=== PATIENT | male | born 1960 | race Caucasian/White ===

== ENCOUNTER 2016-06-06 11:50 | Outpatient (CLI) | payer BC ==
[2016-06-06 12:39] LABS: Hemoglobin A1c 8.2 % (4.0-6.0)
[2016-06-06 12:44] LABS: ALT (SGPT) 42 U/L (0-55); AST (SGOT) 26 U/L (5-34); Alkaline Phosphatase 89 U/L (40-150); Bilirubin, Direct 0.3 mg/dL (0.1-0.3); Bilirubin, Total 1.1 mg/dL (0.2-1.2); LDL Cholesterol, Calculated 154 mg/dL; Protein, Total 7.6 g/dL (6.0-8.3)
== END 2016-06-06 11:51 | disposition home or self-care (01) ==
LOC: NAVSJIPCSP 11:50
PROVIDERS: ATTEND Internal Medicine
DX: E78.2 Mixed hyperlipidemia (principal); E11.29 Type 2 diabetes mellitus with other diabetic kidney complication; R74.0 Nonspecific elevation of levels of transaminase and lactic acid dehydrogenase [LDH]
CPT/HCPCS: 36415; 80061; 80076; 83036

== ENCOUNTER 2016-09-22 10:16 | Outpatient (CLI) | payer BC ==
[2016-09-22 12:33] LABS: #Basophils 0.1 thou/uL (0.0-0.2); #Eosinphils 0.5 thou/uL (0.0-0.7); #Monocytes 0.7 thou/uL (0.11-0.59); #Neutrophils 8.5 thou/uL (1.40-6.50); %Basophils 1.1 % (0.0-1.0); %Eosinophils 3.9 % (0.0-10.0); %Lymphocytes 23.4 % (21.0-51.0); %Monocytes 5.6 % (0.0-10.0); Mean Corpuscular HGB CONC 32.8 g/dL (32.0-36.0); Mean Corpuscular Hemoglobin 30.7 pg (27.0-31.0); Mean Corpuscular Volume 93.6 fl (80.0-94.0); Mean Platelet Volume 5.7 fL (7.4-10.4); Platelet Count 300 thou/uL (130-400); RBC Distribution Width 13.2 % (11.5-14.5); Red Blood Cell (RBC) Count 5.21 mill/uL (4.70-6.10); White Blood Cell (WBC) Count 12.8 thou/uL (4.8-10.8)
[2016-09-22 12:44] LABS: Bilirubin Negative (Negative); Blood, Urine Negative (Negative); Clarity Clear (Clear); Glucose, Urine (Dipstick) >=1000 mg/dL (Negative); Leukocyte Negative (Negative); Nitrite Negative (Negative); Protein, Urine (Dipstick) Negative (Neg-Trace); Urobilinogen 0.2 mg/dL (0.2-1.0)
[2016-09-22 13:04] LABS: ALT (SGPT) 35 U/L (8-55); AST (SGOT) 16 U/L (5-34); Albumin 4.4 g/dL (3.5-5.0); Alkaline Phosphatase 89 U/L (40-150); Anion Gap 18 mmol/L (10-20); BUN (Urea Nitrogen) 22 mg/dL (8.4-25.7); Bilirubin, Total 0.9 mg/dL (0.2-1.2); Calc. Creatinine Clearance 0 mL/min (70-130); Calcium 9.6 mg/dL (7.8-10.44); Carbon Dioxide 19 mmol/L (22-29); Chloride 105 mmol/L (98-107); Cholesterol 224 mg/dl (< 200 Desired); Estimated GFR-MDRD 69; Globulin 3.5 g/dL (2.4-3.5); Glucose 157 mg/dL (70-105); HDL Cholesterol 25 mg/dL (>60 Neg Risk); LDL Cholesterol, Calculated 163 mg/dL; Potassium 4.6 mmol/L (3.5-5.1); Protein, Total 7.9 g/dL (6.0-8.3); Sodium 137 mmol/L (136-145); Triglycerides 179 mg/dL (Less than 150)
[2016-09-22 13:05] LABS: Hemoglobin A1c 7.9 % (4.0-6.0)
[2016-09-22 18:54] LABS: Creatinine, Urine 62.27 mg/dL (63-166); Microalbumin Urine Less than 1.0 mg/dL (0.5-50.0); Microalbumin/Creat Ratio 16.1 mg/g (Less than 30)
== END 2016-09-22 10:17 | disposition home or self-care (01) ==
LOC: NAVSJIPCSP 10:16
PROVIDERS: ATTEND Internal Medicine
DX: Z12.5 Encounter for screening for malignant neoplasm of prostate (principal); I11.9 Hypertensive heart disease without heart failure; E11.29 Type 2 diabetes mellitus with other diabetic kidney complication; E78.2 Mixed hyperlipidemia; E66.01 Morbid (severe) obesity due to excess calories; Z79.899 Other long term (current) drug therapy
CPT/HCPCS: 36415; 80053; 80061; 81003; 82043; 83036; 85025; G0103